=== PATIENT | female | born 1975 | race Caucasian/White ===

== ENCOUNTER 2019-03-15 06:00 | Day surgery (SDC) | payer OTHER ==
[~2019-03-15 06:00] MED LIST: COZAAR25 MG PO; PROVENTIL HFA6.7 GM IH; SEGLUROMET 7.51 EAC1 PO; SYMBICORT 80/10.2 GM IH
[2019-03-15] MEDS ORDERED: ULTRACET PO (17:03)
[2019-03-15] MEDS ORDERED: NEURONTIN300 MG PO (17:04)
[2019-03-15] MEDS ORDERED: COLACE100 MG PO (17:05)
== END 2019-03-15 18:10 | disposition home or self-care (01) ==
LOC: CIR.AMB 06:00
DX: K40.90 Unilateral inguinal hernia, without obstruction or gangrene, not specified as recurrent (principal)